=== PATIENT | male | born 1980 | race Caucasian/White ===

== ENCOUNTER 2018-03-07 13:55 | Emergency (ER) | payer MEDICAID ==
[2018-03-07] MEDS ORDERED: DIPHENHYDRAMINE 25 MG CAP PO (16:30)
[2018-03-07] MEDS ORDERED: predniSONE 20 MG TAB PO (16:30)
== END 2018-03-07 16:30 | disposition home or self-care (01) ==
LOC: FTE 13:55
DX: S50.361A Insect bite (nonvenomous) of right elbow, initial encounter (principal); S40.862A Insect bite (nonvenomous) of left upper arm, initial encounter; S20.461A Insect bite (nonvenomous) of right back wall of thorax, initial encounter; W57.XXXA Bitten or stung by nonvenomous insect and other nonvenomous arthropods, initial encounter; Y92.008 Other place in unspecified non-institutional (private) residence as the place of occurrence of the external cause
CPT/HCPCS: 99284; Z7502

== ENCOUNTER 2018-12-26 20:20 | Emergency (ER) | payer MEDICAID | END 2018-12-26 23:25 | disposition home or self-care (01) | LOC: FTE 20:20 | DX: S80.861A Insect bite (nonvenomous), right lower leg, initial encounter (principal); W57.XXXA Bitten or stung by nonvenomous insect and other nonvenomous arthropods, initial encounter; Y92.9 Unspecified place or not applicable | CPT/HCPCS: 99283; Z7502 ==